=== PATIENT | male | born 1965 ===

== ENCOUNTER 2020-01-07 14:35 | Inpatient (IN) ==
[2020-01-07 15:10] LABS: Basophils % 0.2 % (0.0-0.8); Hematocrit 28.9 VOL% (42.0-52.0); Hemoglobin 9.5 GM/DL (14.0-18.0); Immature Granulocytes % 2.2 %; Immature Granulocytes Absolute 0.54 #; Lymphocytes # 0.8 10*3/uL (1.4-4.0); Lymphocytes % 3.5 % (21.2-54.2); Mean Corpuscular HGB Conc 32.9 GM/DL (32-36); Mean Corpuscular Volume 88.9 FL (87-102); Mean Platelet Volume 8.6 FL (9.6-12.0); Monocytes % 4.5 % (1.7-12.7); Neutrophils % 89.6 % (38.7-73.9); Platelet Count 496 T/CUMM (130-400); Red Blood Count 3.25 MC/CUMM (3.8-5.5); White Blood Count 24.2 T/CUMM (4-12)
[2020-01-07] MEDS ORDERED: CLINDAMYCIN INJ 900 MG in PREMIX 1 EACH IV STA (15:14)
[2020-01-07 15:25] LABS: INR 1.3; PT Patient Result 13.8 SECS (9.8-11.9); Partial Thromboplastin Time 35.3 SECS (23.9-33.8)
[2020-01-07 15:29] LABS: Alanine Aminotransferase 18 U/L (16-61); Albumin 1.6 G/DL (3.4-5.0); Alkaline Phosphatase 208 U/L (45-117); Aspartate Amino Transferase 26 U/L (0-37); Blood Urea Nitrogen 14 MG/DL (7-18); Calcium 7.6 MG/DL (8.5-10.1); Estimated Glom Filtration Rate 110 ML/MIN; Glucose 305 MG/DL (74-106); Osmolality,Calculated 268.1 MOS/KG (273-304); Total Protein 8.7 G/DL (6.4-8.3)
[2020-01-07 16:18] LABS: Lymphocytes 3 % (20-55); Platelet Estimate Adequate; Segmented Neutrophils 91 % (50-85); Total Cells Counted 100
[2020-01-07 16:20] LABS: Anisocytosis Slight
[2020-01-07 16:21] LABS: Polychromasia Slight
[2020-01-07] MEDS: cefOXitin 1,000 MG in SYRINGE 1 EACH IV SCH ×2 (17:02→22:47)
[2020-01-07] MEDS ORDERED: hydrALAZINE 20 MG/1 ML VIAL IV PRN (17:48)
[2020-01-07] MEDS ORDERED: BISACODYL 5 MG TABLET PO PRN (17:48)
[2020-01-07] MEDS ORDERED: SIMETHICONE CHEW 125 MG TABLET PO PRN (17:48)
[2020-01-07] MEDS ORDERED: LACTULOSE 20 GM/30 ML UDCUP PO PRN (17:48)
[2020-01-07] MEDS ORDERED: GLUCAGON 1 MG VIAL IM PRN (17:48)
[2020-01-07] MEDS ORDERED: guaiFENesin/DM ER 600-30 MG TABLET PO PRN (17:48)
[2020-01-07] MEDS ORDERED: DOCUSATE SODIUM 100 MG CAPSULE PO PRN (17:48)
[2020-01-07] MEDS ORDERED: ZALEPLON 5 MG CAPSULE PO PRN (17:48)
[2020-01-07] MEDS ORDERED: DEXTROSE 50% 25 GM/50 ML VIAL IV PRN ×2 (17:48)
[2020-01-07] MEDS ORDERED: diphenhydrAMINE CAP 25 MG CAPSULE PO PRN (17:48)
[2020-01-07] MEDS ORDERED: ONDANSETRON 4 MG/2 ML VIAL IV PRN (17:48)
[2020-01-07] MEDS ORDERED: traZODone 50 MG TABLET PO PRN (17:48)
[2020-01-07] MEDS ORDERED: INFLUENZA VIRUS VACCINE 0.5 ML SYRINGE IM ONE (18:34)
[2020-01-07] MEDS: ACETAMINOPHEN 325 MG TABLET PO PRN ×2 (18:54→22:47)
[2020-01-07] MEDS: VANCOMYCIN INJ 1,500 MG in SODIUM CHLORIDE 0.9% 500 ML IV SCH (20:54)
[2020-01-07] MEDS: POTASSIUM CHLORIDE INJ 40 MEQ in SODIUM CHLORIDE 0.45% 1,000 ML IV SCH (20:54)
[2020-01-07] MEDS: lisinopriL 5 MG TABLET PO SCH (21:04)
[2020-01-08] MEDS: cefOXitin 1,000 MG in SYRINGE 1 EACH IV SCH ×5 (03:31→22:51)
[2020-01-08 04:15] LABS: Amorphous Crystals,Urine Occasional /HPF (Few); Bilirubin,Urine Negative (Negative); Blood, Urine Small mg/dL (Negative); Glucose,Urine (UA) 50 mg/dL (Negative); Hyaline Casts,Urine 1 /LPF (0-3); Ketones,Urine Negative (Negative); Mucus,Urine Occasional /LPF (Occasional); Nitrite,Urine Negative (Negative); Protein,Urine 30 MG/DL; RBC,Urine 6 /HPF (0-4); Squamous Epithelial Cell,Urine Occasional /HPF (0-10); Urine Appearance CLOUDY (Clear); Urine Color Amber (Yellow); Urine Specific Gravity 1.016 (1.001-1.035); WBC,Urine 2 /HPF (0-6)
[2020-01-08 04:35] LABS: Barbiturates Screen,Urine Negative (Negative); Benzodiazepines Screen,Urine Negative (Negative); Cannabinoid Screen,Urine Negative (Negative); Opiate Screen,Urine Negative (Negative); Phencyclidine Screen,Urine Negative (Negative)
[2020-01-08 06:07] LABS: Basophils % 0.2 % (0.0-0.8); Eosinophils # 0.1 10*3/uL (0.0-0.87); Eosinophils % 0.4 % (0.00-10.9); Hematocrit 23.6 VOL% (42.0-52.0); Hemoglobin 7.7 GM/DL (14.0-18.0); Immature Granulocytes % 2.9 %; Immature Granulocytes Absolute 0.47 #; Lymphocytes % 5.8 % (21.2-54.2); Mean Corpuscular HGB Conc 32.6 GM/DL (32-36); Mean Corpuscular Volume 90.4 FL (87-102); Neutrophils % 84.7 % (38.7-73.9); Platelet Count 364 T/CUMM (130-400); Red Blood Count 2.61 MC/CUMM (3.8-5.5); Red Cell Distribution Width 13.1 % (9.3-17.3); White Blood Count 16.4 T/CUMM (4-12)
[2020-01-08 06:21] LABS: Albumin 1.3 G/DL (3.4-5.0); Bilirubin,Total 0.8 MG/DL (0.2-1.0); Calcium 7.6 MG/DL (8.5-10.1); Osmolality,Calculated 275.4 MOS/KG (273-304); Risk Ratio 5.23; Total Protein 7.5 G/DL (6.4-8.3); VLDL CHOLESTEROL 23.2 MG/DL
[2020-01-08] MEDS ORDERED: SODIUM CHLORIDE 0.9% 1,000 ML IV PRN (07:17)
[2020-01-08] MEDS: POTASSIUM CHLORIDE INJ 40 MEQ in SODIUM CHLORIDE 0.45% 1,000 ML IV SCH ×3 (07:47→20:23)
[2020-01-08] MEDS ORDERED: POTASSIUM CHLORIDE RIDER 10 MEQ in PREMIX 1 EACH IV SCH (08:00)
[2020-01-08] MEDS ORDERED: DEXAMETHASONE 4 MG/1 ML VIAL ONE (09:51)
[2020-01-08] MEDS ORDERED: MIDAZOLAM 2 MG/2 ML VIAL ONE (09:51)
[2020-01-08] MEDS ORDERED: ONDANSETRON 4 MG/2 ML VIAL ONE (09:51)
[2020-01-08] MEDS ORDERED: propofoL 200 MG/20 ML VIAL IV ONE (09:51)
[2020-01-08] MEDS ORDERED: KETOROLAC 30 MG/1 ML VIAL ONE (09:51)
[2020-01-08] MEDS ORDERED: LIDOCAINE 2% 5 ML VIAL ONE ×2 (09:51→11:30)
[2020-01-08] MEDS ORDERED: fentaNYL 100 MCG/2 ML VIAL ONE ×3 (09:52→11:31)
[2020-01-08] MEDS ORDERED: ACETAMINOPHEN 1,000 MG/100 ML VIAL IV ONE (09:54)
[2020-01-08] MEDS: VANCOMYCIN INJ 1,500 MG in SODIUM CHLORIDE 0.9% 500 ML IV SCH ×2 (10:03→20:11)
[2020-01-08] MEDS: lisinopriL 5 MG TABLET PO SCH ×2 (10:03→20:23)
[2020-01-08] MEDS: PANTOPRAZOLE 40 MG TABLET PO SCH (10:03)
[2020-01-08] MEDS ORDERED: PHENYLEPHRINE 1 MG/10 ML SYRINGE IV ONE ×2 (10:40→11:15)
[2020-01-08] MEDS ORDERED: PHENYLEPHRINE 10 MG/1 ML VIAL IV ONE (10:40)
[2020-01-08] MEDS ORDERED: SEVOFLURANE 1 UNIT/15 MINUTE INH ONE ×3 (10:52→11:26)
[2020-01-08] MEDS ORDERED: CALCIUM CHLORIDE 1,000 MG/10 ML VIAL IV ONE (11:23)
[2020-01-08 12:12] LABS: Hematocrit 23.6 VOL% (42.0-52.0); Hemoglobin 7.6 GM/DL (14.0-18.0)
[2020-01-08] MEDS ORDERED: ALBUMIN 5% 12.5 GM/250 ML VIAL IV ONE (12:35)
[2020-01-08] MEDS ORDERED: ALBUMIN 5% 12.5 GM in PREMIX 1 EACH IV ONE (12:39)
[2020-01-08] MEDS ORDERED: HYDROmorphone 2 MG/1 ML VIAL IV PRN (14:02)
[2020-01-08] MEDS: GABAPENTIN 300 MG CAPSULE PO SCH ×2 (16:09→21:08)
[2020-01-08] MEDS: INSULIN REGULAR 100 UNIT/ML SUBCUT SCH ×2 (16:10→20:11)
[2020-01-09] MEDS: cefOXitin 1,000 MG in SYRINGE 1 EACH IV SCH ×4 (03:52→23:50)
[2020-01-09 06:13] LABS: Basophils % 0.2 % (0.0-0.8); Eosinophils % 0.2 % (0.00-10.9); Hematocrit 25.2 VOL% (42.0-52.0); Hemoglobin 8.1 GM/DL (14.0-18.0); Immature Granulocytes % 4.2 %; Immature Granulocytes Absolute 0.45 #; Lymphocytes # 0.8 10*3/uL (1.4-4.0); Lymphocytes % 7.6 % (21.2-54.2); Mean Corpuscular HGB Conc 32.1 GM/DL (32-36); Mean Corpuscular Volume 92.6 FL (87-102); Neutrophils % 81.8 % (38.7-73.9); Platelet Count 380 T/CUMM (130-400); Red Blood Count 2.72 MC/CUMM (3.8-5.5); Red Cell Distribution Width 13.7 % (9.3-17.3); White Blood Count 10.8 T/CUMM (4-12)
[2020-01-09] MEDS: POTASSIUM CHLORIDE INJ 40 MEQ in SODIUM CHLORIDE 0.45% 1,000 ML IV SCH ×3 (06:15→21:55)
[2020-01-09 06:41] LABS: % Iron Saturation 68.3 % (18-50); Ferritin 1375.8 ng/ml (26-388)
[2020-01-09 06:42] LABS: Albumin 1.4 G/DL (3.4-5.0); Bilirubin,Total 1.4 MG/DL (0.2-1.0); Calcium 7.4 MG/DL (8.5-10.1); Osmolality,Calculated 279.7 MOS/KG (273-304); Total Protein 6.6 G/DL (6.4-8.3)
[2020-01-09] MEDS ORDERED: IRON SUCROSE 300 MG in SODIUM CHLORIDE 0.9% 100 ML IV ONE (08:00)
[2020-01-09] MEDS: VANCOMYCIN INJ 1,500 MG in SODIUM CHLORIDE 0.9% 500 ML IV SCH ×2 (08:03→21:55)
[2020-01-09] MEDS: INSULIN REGULAR 100 UNIT/ML SUBCUT SCH ×4 (08:03→21:54)
[2020-01-09] MEDS: GABAPENTIN 300 MG CAPSULE PO SCH ×3 (09:15→21:53)
[2020-01-09] MEDS: FERROUS SULFATE 325 MG TABLET PO SCH ×2 (09:15→21:53)
[2020-01-09] MEDS: PANTOPRAZOLE 40 MG TABLET PO SCH (09:16)
[2020-01-09] MEDS: lisinopriL 5 MG TABLET PO SCH ×2 (09:16→21:54)
[2020-01-09] MEDS: metFORMIN 500 MG TABLET PO SCH (17:15)
[2020-01-10] MEDS: cefOXitin 1,000 MG in SYRINGE 1 EACH IV SCH ×4 (05:24→22:25)
[2020-01-10 05:48] LABS: Basophils % 0.6 % (0.0-0.8); Eosinophils # 0.1 10*3/uL (0.0-0.87); Eosinophils % 1.5 % (0.00-10.9); Hematocrit 23.2 VOL% (42.0-52.0); Hemoglobin 7.5 GM/DL (14.0-18.0); Immature Granulocytes % 10.4 %; Immature Granulocytes Absolute 0.75 #; Lymphocytes # 1.2 10*3/uL (1.4-4.0); Lymphocytes % 17.2 % (21.2-54.2); Mean Corpuscular HGB Conc 32.3 GM/DL (32-36); Mean Corpuscular Volume 91.3 FL (87-102); Mean Platelet Volume 8.7 FL (9.6-12.0); Monocytes % 5.8 % (1.7-12.7); Neutrophils % 64.5 % (38.7-73.9); Platelet Count 386 T/CUMM (130-400); Red Blood Count 2.54 MC/CUMM (3.8-5.5); Red Cell Distribution Width 13.5 % (9.3-17.3); White Blood Count 7.2 T/CUMM (4-12)
[2020-01-10 06:10] LABS: Eosinophils 4 % (0-10); Lymphocytes 24 % (20-55); Nucleated Red Blood Cells 1 (0-5); Platelet Estimate Normal; Segmented Neutrophils 64 % (50-85); Total Cells Counted 100
[2020-01-10 06:11] LABS: Hypochromasia Slight
[2020-01-10 06:53] LABS: Albumin 1.4 G/DL (3.4-5.0); Bilirubin,Total 0.7 MG/DL (0.2-1.0); Osmolality,Calculated 281.2 MOS/KG (273-304); Total Protein 6.7 G/DL (6.4-8.3)
[2020-01-10] MEDS ORDERED: MAGNESIUM SULF RIDER 4 GM in PREMIX 1 EACH IV PRN (07:06)
[2020-01-10] MEDS ORDERED: SODIUM CHLORIDE 0.9% 1,000 ML IV PRN (07:06)
[2020-01-10] MEDS ORDERED: MAGNESIUM SULF RIDER 2 GM in PREMIX 1 EACH IV PRN (07:06)
[2020-01-10] MEDS ORDERED: SODIUM PHOSPHATE INJ 30 MMOL in SODIUM CHLORIDE 0.9% 250 ML IV ONE (08:00)
[2020-01-10] MEDS ORDERED: CALCIUM GLUCONATE 2,000 MG in SODIUM CHLORIDE 0.9% 100 ML IV ONE (08:00)
[2020-01-10] MEDS: GABAPENTIN 300 MG CAPSULE PO SCH ×3 (10:16→21:25)
[2020-01-10] MEDS: PANTOPRAZOLE 40 MG TABLET PO SCH (10:16)
[2020-01-10] MEDS: metFORMIN 500 MG TABLET PO SCH ×2 (10:16→19:20)
[2020-01-10] MEDS: ZINC SULFATE 220 MG CAPSULE PO SCH (10:16)
[2020-01-10] MEDS: lisinopriL 5 MG TABLET PO SCH ×2 (10:16→21:25)
[2020-01-10] MEDS: FERROUS SULFATE 325 MG TABLET PO SCH ×2 (10:17→21:25)
[2020-01-10] MEDS: MULTIVITAMIN (BEROCCA) TABLET PO SCH (10:17)
[2020-01-10] MEDS: INSULIN REGULAR 100 UNIT/ML SUBCUT SCH ×4 (10:18→21:25)
[2020-01-10] MEDS: POTASSIUM CHLORIDE INJ 40 MEQ in SODIUM CHLORIDE 0.45% 1,000 ML IV SCH ×2 (19:20→21:24)
[2020-01-10] MEDS: VANCOMYCIN INJ 1,500 MG in SODIUM CHLORIDE 0.9% 500 ML IV SCH (19:23)
[2020-01-10] MEDS: HEPARIN 5,000 UNIT/1 ML VIAL SUBCUT SCH (22:26)
[2020-01-11] MEDS: GABAPENTIN 300 MG CAPSULE PO SCH ×3 (02:24→14:25)
[2020-01-11] MEDS: cefOXitin 1,000 MG in SYRINGE 1 EACH IV SCH ×3 (03:52→16:20)
[2020-01-11 04:21] LABS: Basophils # 0.1 10*3/uL (0.0-0.2); Basophils % 0.6 % (0.0-0.8); Eosinophils # 0.1 10*3/uL (0.0-0.87); Eosinophils % 1.4 % (0.00-10.9); Hematocrit 29.2 VOL% (42.0-52.0); Immature Granulocytes % 12.2 %; Immature Granulocytes Absolute 1.07 #; Lymphocytes # 1.5 10*3/uL (1.4-4.0); Lymphocytes % 17.5 % (21.2-54.2); Mean Corpuscular HGB Conc 32.2 GM/DL (32-36); Mean Corpuscular Volume 91.8 FL (87-102); Mean Platelet Volume 8.5 FL (9.6-12.0); Monocytes % 7.2 % (1.7-12.7); NRBC # 0.02 10*3/uL; Neutrophils % 61.1 % (38.7-73.9); Platelet Count 463 T/CUMM (130-400); Red Cell Distribution Width 14.1 % (9.3-17.3); White Blood Count 8.8 T/CUMM (4-12)
[2020-01-11 04:27] LABS: Hemoglobin 9.4 GM/DL (14.0-18.0); Red Blood Count 3.18 MC/CUMM (3.8-5.5)
[2020-01-11 04:41] LABS: Band Neutrophils 4 % (0-10); Lymphocytes 12 % (20-55); Platelet Estimate Adequate; Segmented Neutrophils 77 % (50-85); Total Cells Counted 100
[2020-01-11 04:42] LABS: Hypochromasia 1+; Microcytosis 1+
[2020-01-11 04:46] LABS: Albumin 1.5 G/DL (3.4-5.0); Bilirubin,Total 0.4 MG/DL (0.2-1.0); Calcium 7.4 MG/DL (8.5-10.1); Osmolality,Calculated 272.1 MOS/KG (273-304)
[2020-01-11] MEDS: POTASSIUM CHLORIDE INJ 40 MEQ in SODIUM CHLORIDE 0.45% 1,000 ML IV SCH ×3 (05:34→23:20)
[2020-01-11] MEDS: HEPARIN 5,000 UNIT/1 ML VIAL SUBCUT SCH ×2 (05:35→14:25)
[2020-01-11] MEDS: ZINC SULFATE 220 MG CAPSULE PO SCH (08:41)
[2020-01-11] MEDS: metFORMIN 500 MG TABLET PO SCH ×2 (08:41→16:41)
[2020-01-11] MEDS: MULTIVITAMIN (BEROCCA) TABLET PO SCH (08:41)
[2020-01-11] MEDS: lisinopriL 5 MG TABLET PO SCH ×2 (08:42→22:45)
[2020-01-11] MEDS: FERROUS SULFATE 325 MG TABLET PO SCH ×2 (08:42→23:19)
[2020-01-11] MEDS: PANTOPRAZOLE 40 MG TABLET PO SCH (08:42)
[2020-01-11] MEDS: INSULIN REGULAR 100 UNIT/ML SUBCUT SCH ×3 (09:13→16:41)
[2020-01-12 05:13] LABS: Basophils # 0.1 10*3/uL (0.0-0.2); Basophils % 0.8 % (0.0-0.8); Eosinophils # 0.1 10*3/uL (0.0-0.87); Eosinophils % 1.3 % (0.00-10.9); Hematocrit 31.8 VOL% (42.0-52.0); Hemoglobin 10.1 GM/DL (14.0-18.0); Immature Granulocytes % 15.2 %; Immature Granulocytes Absolute 1.38 #; Lymphocytes # 1.3 10*3/uL (1.4-4.0); Lymphocytes % 14.3 % (21.2-54.2); Mean Corpuscular HGB Conc 31.8 GM/DL (32-36); Mean Corpuscular Volume 93.3 FL (87-102); Mean Platelet Volume 8.5 FL (9.6-12.0); Monocytes % 7.5 % (1.7-12.7); Neutrophils % 60.9 % (38.7-73.9); Platelet Count 531 T/CUMM (130-400); Red Blood Count 3.41 MC/CUMM (3.8-5.5); White Blood Count 9.1 T/CUMM (4-12)
[2020-01-12 05:29] LABS: Albumin 1.7 G/DL (3.4-5.0); Bilirubin,Total 0.7 MG/DL (0.2-1.0); Calcium 8.2 MG/DL (8.5-10.1); Osmolality,Calculated 272.1 MOS/KG (273-304); Total Protein 7.4 G/DL (6.4-8.3)
[2020-01-12 05:38] LABS: Band Neutrophils 6 % (0-10); Eosinophils 1 % (0-10); Hypochromasia 1+; Lymphocytes 14 % (20-55); Microcytosis 1+; Ovalocytes Slight; Platelet Estimate Adequate; Segmented Neutrophils 75 % (50-85); Total Cells Counted 100
[2020-01-12] MEDS: HEPARIN 5,000 UNIT/1 ML VIAL SUBCUT SCH ×4 (07:52→22:00)
[2020-01-12] MEDS: LINEZOLID 600 MG TABLET PO SCH ×2 (07:52→09:06)
[2020-01-12] MEDS: INSULIN REGULAR 100 UNIT/ML SUBCUT SCH ×4 (07:55→16:45)
[2020-01-12] MEDS: cefOXitin 1,000 MG in SYRINGE 1 EACH IV SCH ×5 (08:03→22:00)
[2020-01-12] MEDS: PANTOPRAZOLE 40 MG TABLET PO SCH (09:06)
[2020-01-12] MEDS: GABAPENTIN 300 MG CAPSULE PO SCH ×2 (09:06→14:30)
[2020-01-12] MEDS: metFORMIN 500 MG TABLET PO SCH ×2 (09:06→16:45)
[2020-01-12] MEDS: ZINC SULFATE 220 MG CAPSULE PO SCH (09:06)
[2020-01-12] MEDS: MULTIVITAMIN (BEROCCA) TABLET PO SCH (09:06)
[2020-01-12] MEDS: FERROUS SULFATE 325 MG TABLET PO SCH (09:06)
[2020-01-12] MEDS: lisinopriL 5 MG TABLET PO SCH (09:07)
[2020-01-12] MEDS: CALCIUM ACETATE 667 MG CAPSULE PO SCH (16:45)
[2020-01-13] MEDS: FERROUS SULFATE 325 MG TABLET PO SCH ×3 (01:05→20:44)
[2020-01-13] MEDS: GABAPENTIN 300 MG CAPSULE PO SCH ×4 (01:10→20:44)
[2020-01-13] MEDS: LINEZOLID 600 MG TABLET PO SCH ×2 (02:14→09:59)
[2020-01-13] MEDS: lisinopriL 5 MG TABLET PO SCH ×3 (02:14→20:44)
[2020-01-13] MEDS: INSULIN REGULAR 100 UNIT/ML SUBCUT SCH ×5 (02:15→20:47)
[2020-01-13] MEDS: cefOXitin 1,000 MG in SYRINGE 1 EACH IV SCH ×2 (03:41→12:08)
[2020-01-13 04:50] LABS: Basophils # 0.1 10*3/uL (0.0-0.2); Basophils % 0.7 % (0.0-0.8); Eosinophils # 0.2 10*3/uL (0.0-0.87); Hemoglobin 10.8 GM/DL (14.0-18.0); Immature Granulocytes % 14.6 %; Immature Granulocytes Absolute 1.27 #; Lymphocytes # 1.2 10*3/uL (1.4-4.0); Lymphocytes % 14.2 % (21.2-54.2); Mean Corpuscular HGB Conc 31.8 GM/DL (32-36); Mean Corpuscular Volume 92.6 FL (87-102); Mean Platelet Volume 8.1 FL (9.6-12.0); Monocytes % 7.4 % (1.7-12.7); Neutrophils % 61.1 % (38.7-73.9); Platelet Count 524 T/CUMM (130-400); Red Blood Count 3.67 MC/CUMM (3.8-5.5); Red Cell Distribution Width 14.1 % (9.3-17.3); White Blood Count 8.7 T/CUMM (4-12)
[2020-01-13 05:08] LABS: Calcium 8.5 MG/DL (8.5-10.1); Osmolality,Calculated 270.4 MOS/KG (273-304)
[2020-01-13 05:12] LABS: Band Neutrophils 3 % (0-10); Eosinophils 1 % (0-10); Lymphocytes 14 % (20-55); Metamyelocytes 3 %; Myelocytes 1 %; Segmented Neutrophils 70 % (50-85); Total Cells Counted 100
[2020-01-13 05:13] LABS: Hypochromasia 1+; Microcytosis 1+; Polychromasia Slight
[2020-01-13 05:14] LABS: Atypical Lymphocytes Few; Platelet Estimate Increased
[2020-01-13] MEDS: HEPARIN 5,000 UNIT/1 ML VIAL SUBCUT SCH ×3 (06:17→22:05)
[2020-01-13] MEDS: CALCIUM ACETATE 667 MG CAPSULE PO SCH ×3 (09:58→17:20)
[2020-01-13] MEDS: PANTOPRAZOLE 40 MG TABLET PO SCH (09:59)
[2020-01-13] MEDS: MULTIVITAMIN (BEROCCA) TABLET PO SCH (09:59)
[2020-01-13] MEDS: metFORMIN 500 MG TABLET PO SCH ×2 (10:00→17:20)
[2020-01-13] MEDS: ZINC SULFATE 220 MG CAPSULE PO SCH (10:00)
[2020-01-14 05:33] LABS: Basophils # 0.1 10*3/uL (0.0-0.2); Basophils % 1.2 % (0.0-0.8); Eosinophils # 0.2 10*3/uL (0.0-0.87); Eosinophils % 2.5 % (0.00-10.9); Hematocrit 33.5 VOL% (42.0-52.0); Hemoglobin 10.8 GM/DL (14.0-18.0); Immature Granulocytes % 14.6 %; Immature Granulocytes Absolute 1.06 #; Lymphocytes # 1.3 10*3/uL (1.4-4.0); Mean Corpuscular HGB Conc 32.2 GM/DL (32-36); Mean Corpuscular Volume 93.1 FL (87-102); Mean Platelet Volume 8.8 FL (9.6-12.0); Neutrophils % 54.7 % (38.7-73.9); Platelet Count 558 T/CUMM (130-400); Red Cell Distribution Width 13.9 % (9.3-17.3); White Blood Count 7.2 T/CUMM (4-12)
[2020-01-14 05:55] LABS: Calcium 8.7 MG/DL (8.5-10.1); Osmolality,Calculated 271.4 MOS/KG (273-304)
[2020-01-14 05:56] LABS: Band Neutrophils 2 % (0-10); Eosinophils 5 % (0-10); Hypochromasia 1+; Lymphocytes 16 % (20-55); Myelocytes 1 %; Platelet Estimate Increased; Segmented Neutrophils 65 % (50-85); Total Cells Counted 100
[2020-01-14 05:57] LABS: Microcytosis 1+
[2020-01-14] MEDS: HEPARIN 5,000 UNIT/1 ML VIAL SUBCUT SCH ×3 (06:47→22:06)
[2020-01-14] MEDS: CALCIUM ACETATE 667 MG CAPSULE PO SCH ×3 (07:57→17:14)
[2020-01-14] MEDS: metFORMIN 500 MG TABLET PO SCH ×2 (07:57→17:14)
[2020-01-14] MEDS: ZINC SULFATE 220 MG CAPSULE PO SCH (09:11)
[2020-01-14] MEDS: GABAPENTIN 300 MG CAPSULE PO SCH ×3 (09:11→22:07)
[2020-01-14] MEDS: lisinopriL 5 MG TABLET PO SCH ×2 (09:11→22:07)
[2020-01-14] MEDS: PANTOPRAZOLE 40 MG TABLET PO SCH (09:11)
[2020-01-14] MEDS: FERROUS SULFATE 325 MG TABLET PO SCH ×2 (09:11→22:07)
[2020-01-14] MEDS: MULTIVITAMIN (BEROCCA) TABLET PO SCH (09:11)
[2020-01-14] MEDS: INSULIN REGULAR 100 UNIT/ML SUBCUT SCH ×4 (09:12→22:06)
[2020-01-15 04:52] LABS: Basophils % 0.6 % (0.0-0.8); Eosinophils # 0.2 10*3/uL (0.0-0.87); Eosinophils % 2.7 % (0.00-10.9); Hematocrit 31.8 VOL% (42.0-52.0); Hemoglobin 10.2 GM/DL (14.0-18.0); Immature Granulocytes % 9.2 %; Immature Granulocytes Absolute 0.58 #; Lymphocytes # 1.3 10*3/uL (1.4-4.0); Lymphocytes % 20.2 % (21.2-54.2); Mean Corpuscular HGB Conc 32.1 GM/DL (32-36); Mean Corpuscular Volume 92.4 FL (87-102); Mean Platelet Volume 8.1 FL (9.6-12.0); Monocytes % 10.5 % (1.7-12.7); Neutrophils % 56.8 % (38.7-73.9); Platelet Count 516 T/CUMM (130-400); Red Blood Count 3.44 MC/CUMM (3.8-5.5); Red Cell Distribution Width 13.9 % (9.3-17.3); White Blood Count 6.3 T/CUMM (4-12)
[2020-01-15 05:10] LABS: Calcium 8.4 MG/DL (8.5-10.1)
[2020-01-15 05:15] LABS: Atypical Lymphocytes Few; Eosinophils 3 % (0-10); Lymphocytes 14 % (20-55); Metamyelocytes 2 %; Myelocytes 2 %; Segmented Neutrophils 69 % (50-85); Total Cells Counted 100
[2020-01-15 05:16] LABS: Hypochromasia 1+; Microcytosis 1+; Platelet Estimate Increased; Spherocytes Slight
[2020-01-15] MEDS: HEPARIN 5,000 UNIT/1 ML VIAL SUBCUT SCH (05:27)
[2020-01-15] MEDS: CALCIUM ACETATE 667 MG CAPSULE PO SCH ×2 (07:58→11:37)
[2020-01-15] MEDS: GABAPENTIN 300 MG CAPSULE PO SCH ×2 (07:58→08:01)
[2020-01-15] MEDS: metFORMIN 500 MG TABLET PO SCH (07:59)
[2020-01-15] MEDS: ZINC SULFATE 220 MG CAPSULE PO SCH (07:59)
[2020-01-15] MEDS: MULTIVITAMIN (BEROCCA) TABLET PO SCH (07:59)
[2020-01-15] MEDS: FERROUS SULFATE 325 MG TABLET PO SCH ×2 (07:59→08:01)
[2020-01-15] MEDS: lisinopriL 5 MG TABLET PO SCH (07:59)
[2020-01-15] MEDS: PANTOPRAZOLE 40 MG TABLET PO SCH (07:59)
[2020-01-15] MEDS: INSULIN REGULAR 100 UNIT/ML SUBCUT SCH ×2 (09:05→11:38)
[2020-01-15 11:31] VITALS: BP 97/63
== END 2020-01-15 14:17 | DRG 854 ==
LOC: EDUNIT# → EDBD → N.ED 14:35 → N.EDINP 17:05 → N.3E 18:05
PROVIDERS: ADMIT Student in an Organized Health Care Education/Training Program; ATTEND Student in an Organized Health Care Education/Training Program